=== PATIENT | female | born 1955 | race Caucasian/White ===

== ENCOUNTER 2016-11-23 17:20 | Emergency (ER) | payer OTHER ==
[2016-11-23] MEDS ORDERED: NORMAL SALINE 10 ML SYRINGE FLUSH IVP PRN (17:49)
[2016-11-23] MEDS ORDERED: ONDANSETRON 4 MG/2 ML VIAL IVP ONE (17:49)
[2016-11-23] MEDS ORDERED: Sodium Chloride 0.9% 1,000 ML PRIMARY IV ONE ×2 (17:49→18:52)
[2016-11-23 17:53] VITALS: RESP 16; TEMP 97.5
[2016-11-23 18:14] LABS: BASOPHILS # (AUTO) 0.01 10*3/UL; BASOPHILS % (AUTO) 0.1 % (0-1); BLOOD UREA NITROGEN 21 mg/dL (7-22); BUN/CREATININE RATIO 26.25 (6-20); CALCIUM 9.5 mg/dL (8.7-10.7); EOSINOPHILS # (AUTO) 0.05 10*3/UL; EOSINOPHILS % (AUTO) 0.5 % (0-8); EST GLOMERULAR FILTRATION > 60 (>60 ml/min/1.73m(2)); HEMATOCRIT 44.7 % (37.0-47.0); LYMPHOCYTES # (AUTO) 0.56 10*3/uL; MEAN CORPUSCULAR HEMOGLOBIN 29.6 PG (27-31); MEAN CORPUSCULAR HGB CONC 33.6 g/dL (33-37); MEAN CORPUSCULAR VOLUME 88.3 FL (81-99); MEAN PLATELET VOLUME 9.7 FL (7.4-12.2); MONOCYTES # (AUTO) 0.31 10*3/UL (0.3-0.8); MONOCYTES % (AUTO) 3.2 % (5-15); NEUTROPHILS # (AUTO) 8.61 10*3/UL; NEUTROPHILS % (AUTO) 90.1 % (50-80); RED BLOOD COUNT 5.06 10^6/uL (4.20-5.40); SERUM ALBUMIN 4.7 g/dL (3.5-4.8)
[2016-11-23 18:33] LABS: PLATELET MORPHOLOGY COMMENT NORMAL MORPHOLOGY (NORM); RBC MORPHOLOGY COMMENT NORMAL MORPHOLOGY (NORM); WBC MORPHOLOGY COMMENT NORMAL MORPHOLOGY (NORM)
[2016-11-23] MEDS ORDERED: ACETAMINOPHEN 500 MG TABLET PO ONE (18:50)
[2016-11-23] MEDS ORDERED: Ondansetron ODT Tab 4 MG TAB PO SCH (19:45)
--- NOTE | 2016-11-24 05:26 | PDOC ---
Nausea/Vomiting/Diarrhea HPI - General Chief Complaint: Nausea / Vomiting / Diarrhea Stated Complaint: VOMITING SINCE 0700 TODAY Date Seen by Provider: 11/23/16 Time Seen by Provider: 17:40 Source: POSITIVE: Patient Exam Limitations: POSITIVE: No limitations Nurse's Notes Reviewed & Considered: Yes - History of Present Illness Initial Comments: The patient is a 61-year-old female. She states that since 7:30 AM, approximately 10 hours [employer], she has had nausea and vomiting. She states that she has epilepsy and has not been able to ingest her Lamictal of which she takes 200 mg twice daily, due to nausea and vomiting. She denies any abdominal pain. No diarrhea. No hematocrit Tesio, melena, hematemesis, fevers, dysuria or hematuria. 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 She's also had a cholecystectomy and hysterectomy. Body Location Affected: REPORTS: Abdomen Timing: REPORTS: Constant Duration: <24 hours (Approximately 10 hours) Severity: Moderate Quality: REPORTS: Other (Patient denies any pain anywhere) Abdominal Pain Onset Location: DENIES: RUQ, LUQ, RLQ, LLQ, Epigastric, Periumbilical, Suprapubic, Generalized abdomen, Flank, Other Abdominal Pain Radiation: REPORTS: No radiation Context: REPORTS: None Modifying Factors: improves with: Vomiting Associated Symptoms: REPORTS: Vomiting, Frequent Vomiting. DENIES: Bloody Emesis, Blood-Streaked Emesis, Bilious Emesis, Feculent Emesis, Diarrhea Similar Symptoms Previously: No Recent Care Received: REPORTS: Denies Any Prior Injuries Related to Current Complaint?: No - Patient Home Medications Home Medications: Home Medications Lamotrigine [Lamictal] 200 mg PO BID 12/31/15 Ondansetron Odt [Zofran ODT] 4 mg PO Q6H PRN #10 tab.rapdis 11/23/16 - Patient Allergies Allergies/Adverse Reactions: Allergies Allergy/AdvReac Type Severity Reaction Status Date / Time No Known Allergies Allergy Verified 11/23/16 17:28 Past Medical History - heen HEENT History: Denies History Cardiovascular History: Denies History Respiratory History: Denies History Gastrointestinal History: Diverticulitis, Other (please comment) Additional Gastrointestinal History: COLON RESECTION x1, SMALL INTESTINE RESECTION x1, CHOLECYSTECTOMY Genitourinary History: Denies History Endocrine History: Denies History Musculoskeletal History: Osteoporosis Prosthesis or Implant: No Neurological History: Seizures Blood Disorders: Denies History Psychiatric History: Denies History History of Sexually Transmitted Diseases: No Female Reproductive History: Hysterectomy Additional Female Reproductive History: PARTIAL HYSTERECTOMY LMP: AGE 24 Cancer History: Denies History In Past Year Been Physically Harmed or Verbally Threatened: No (PER PATIENT) History of MDRO: No History of Other Communicable Diseases: No Tobacco Use: Never Smoker Alcohol Use: None Substance Use Type: None Previous Surgical History: Yes Type / Date of Surgery: CHOLECYSTECTOMY, BENIGN SMALL INTESTINE TUMOR RESECTION x1, COLON RESECTION x1 Anesthesia Reactions: No Malignant Hyperthermia: No Family History of Malignant Hyperthermia: No Significant Family History: No pertinent family hx Past Medical History Reviewed: Reviewed - No Changes ROS - Limitations ROS Limitations: No Limitations Constitution: REPORTS: Denies Symptoms Cardiovascular: REPORTS: Denies Cardiac Symptoms Respiratory: REPORTS: Denies Resp Symptoms Neurological: REPORTS: Denies Neuro Symptoms Gastrointestinal: REPORTS: Nausea, Vomitting Endocrine: REPORTS: Denies Symptoms Musculoskeletal: REPORTS: Denies MS Symptoms Genitourinary: REPORTS: Denies Symptoms Eyes: REPORTS: Denies Symptoms ENT: REPORTS: Denies Symptoms Skin: REPORTS: Denies Skin Symptoms Lympathic: REPORTS: Denies Lympathic Symptoms Immunologic: POSITIVE: Denies Symptoms Psychiatric: POSITIVE: Denies Psych Symptoms Nausea/Vomiting/Diarrhea Exam - General Appearance General Appearance: POSITIVE: Alert, Cooperative, No Acute Distress, No Evidence of Trauma - HEENT HEENT: POSITIVE: Head Inspection Nml, Eyes Inspection Nml, Ears Inspection Nml, Nose Inspection Nml, Oral/Dental Inspect. Nml, Pharynx Inspect. Nml, PERRL, EOMI - Neck Neck: POSITIVE: Supple, Normal Inspection, Non Tender - Respiratory Respiratory: POSITIVE: No Respiratory Distress, Breath Sounds Normal, Chest Non- Tender - Cardiovascular Cardiovascular: POSITIVE: Regular Rate and Rhythm, Heart Sounds Normal, Equal Pulses, Strong Pulses Peripheral Pulses: Radial (R): 2+, Radial (L): 2+ - Chest Chest: POSITIVE: Non Tender - Abdomen Abdomen: Soft: (All Quadrants), Normal Bowel Sounds: (All Quadrants), Denies Tenderness: (All Quadrants), No Splenomegaly: (All Quadrants), No Hepatomegaly: (All Quadrants), No Guarding: (All Quadrants), No Rebound: (All Quadrants), No Palpable Pulse: (All Quadrants), No Palpabale Mass: (All Quadrants), No Distention: (All Quadrants), No Rigidity: (All Quadrants) - Skin Skin: POSITIVE: Intact, Normal For Race, Warm, Dry, No Rash - Extremities Extremity: Non-Tender: (All Extremities), Normal ROM: (All Extremities), Normal Inspection: (All Extremities) - Neurological / Psychological Neurological: POSITIVE: Oriented X3, 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, Motor Normal, Sensation Normal, 5, 6 N/V/D Progress - Results Reviewed by me Lab Results Reviewed: Yes Lab Results:: Laboratory Results 11/23/16 Range/Units 18:02 WBC 9.56 (4.8-10.8) 10^3/uL RBC 5.06 (4.20-5.40) 10^6/uL Hgb 15.0 (12.0-16.0) g/dL Hct 44.7 (37.0-47.0) % MCV 88.3 (81-99) FL MCH 29.6 (27-31) PG MCHC 33.6 (33-37) g/dL RDW Std Deviation 42.2 (39-50) fL RDW Coeff of Sharon 13.3 (11.5-14.5) % Plt Count 263 (140-350) 10*3/uL MPV 9.7 (7.4-12.2) FL Immature Gran % (Auto) 0.2 (0-5) % Neut % (Auto) 90.1 H (50-80) % Lymph % (Auto) 5.9 L (10-50) % Bandera % (Auto) 3.2 L (5-15) % Eos % (Auto) 0.5 (0-8) % Baso % (Auto) 0.1 (0-1) % Immature Gran # (Auto) 0.02 10*3/UL Neut # (Auto) 8.61 10*3/UL Lymph # (Auto) 0.56 10*3/uL Bandera # (Auto) 0.31 (0.3-0.8) 10*3/UL Eos # (Auto) 0.05 10*3/UL Baso # (Auto) 0.01 10*3/UL WBC Morphology Comment Normal morphology (NORM) Plt Morphology Comment Normal morphology (NORM) RBC Morph Comment Normal morphology (NORM) Sodium 138 (135-145) meq/L Potassium 4.1 (3.8-5.2) meq/L Chloride 104 (98-112) meq/L Carbon Dioxide 21 L (23-33) meq/L Anion Gap 13 (5-20) BUN 21 (7-22) mg/dL Creatinine 0.8 (0.50-1.20) mg/dL Estimated GFR > 60 (>60 ml/min/1.73m(2)) BUN/Creatinine Ratio 26.25 H (6-20) Glucose 110 (78-110) mg/dL Calculated Osmolality 289.0 (267-292) mOsm/kg Calcium 9.5 (8.7-10.7) mg/dL Total Bilirubin 1.3 H (0.3-1.2) mg/dL AST 28 (8-39) IU/L ALT 40 (9-52) IU/L Alkaline Phosphatase 70 (38-126) IU/L Total Protein 7.9 (6.1-8.0) g/dL Albumin 4.7 (3.5-4.8) g/dL Globulin 3.2 (2.50-4.10) g/dL Albumin/Globulin Ratio 1.40 (1.3-2.0) mg/g - Patient's Progress Pain Medication Addressed: POSITIVE: Not Applicable School/Work Release Addressed: POSITIVE: Not Applicable Re-examine Time: 19:30 Re-Examine Comment: Patient hydrated with approximately 1300 mL of normal saline and was given 8 mg of Zofran IV. No vomiting in the emergency room. Patient started on discharge states that her nausea has resolved and she feels much better. Status: POSITIVE: Improved, Re-Examined - Consult Counseled: POSITIVE: Patient, RE: Lab Results, RE: DX, RE: Need for F/U Patient Care Time - Estimated PCT Patient Care Time (In Minutes): 45 Vital Signs - VS Reviewed Vital Signs Reviewed: Yes Discharge Clinical Impression: Nausea and vomiting Discharge Disposition: Discharged to Home Condition: Stable Prescriptions / Orders: Ondansetron Odt [Zofran ODT] 4 mg PO Q6H PRN #10 tab.rapdis PRN Reason: Nausea Patient Instructions Given at Discharge: Acute Nausea and Vomiting (ED) Additional Instructions: Clear liquid diet for 12 hours and then advance to regular diet. Zofran ODT, one dissolved under tongue every 6 hours as necessary for nausea. Return anytime if condition worsens in any way. Follow-up with your primary care provider. Follow Up With: PAO DEAN [Primary Care Provider] - (Instructions and medication as above. Follow-up with your primary care provider. Return here anytime if condition worsens.)
== END 2016-11-23 19:50 | disposition home or self-care (01) ==
LOC: ER 17:20
DX: R11.2 Nausea with vomiting, unspecified (principal); G40.909 Epilepsy, unspecified, not intractable, without status epilepticus; Z90.49 Acquired absence of other specified parts of digestive tract
CPT/HCPCS: 80053; 85025; 96361; 96374; 99283; J2405; J7030